=== PATIENT | female | born 1935 | race Caucasian/White ===

== ENCOUNTER 2017-10-23 14:27 | Inpatient (IN) ==
--- NOTE | 2017-10-23 16:23 | Emergency Department Note ---
Disposition Clinical Impression: Bladder prolapse, Uterine prolapse Sepsis Qualifiers: Sepsis type: sepsis due to unspecified organism Qualified Code(s): A41.9 - Sepsis, unspecified organism Urinary tract infection Qualifiers: Urinary tract infection type: site unspecified Hematuria presence: without hematuria Qualified Code(s): N39.0 - Urinary tract infection, site not specified Disposition: Admitted As Inpatient Condition: Fair Time of Disposition: 19:33 General Adult HPI - General Chief complaint: ED Urogenital-Female Stated complaint: Prolasped Uterius Time Seen by Provider: 10/23/17 15:47 Source: patient Mode of arrival: ambulatory Limitations: no limitations Nursing Notes Reviewed: Yes Vital Signs Reviewed: Yes - History of Present Illness HPI Narrative: Patient is an 82-year-old female with no pertinent past medical history presenting 2 hours prior with complaint of a prolapsed uterus. Patient states that this is been going on for the past 3 years and has been gradually worsening over time and she is being evaluated today because of her daughter. According to the patient's daughter the patient has been having difficulty with sitting down with pain she discussed these findings with the patient patient admitted that she has had this prolapse has been going on aspirin gradually worsening to the point now where she has pain. She states that the prolapse is like the size of a fist. She states that she was seen at [place] urgent care and referred to come here for her uterine prolapse. States that the area has been odorous. Pain Scale: 5 - Related Data Home Medications Medication Instructions Recorded Confirmed Amlodipine Besylate 10 mg PO DAILY 10/23/17 10/23/17 Aspirin Enteric Coated [Aspirin EC] 81 mg PO DAILY 10/23/17 10/23/17 Calcium Carbonate/Vitamin D3 1 each PO BID 10/23/17 10/23/17 [Oyster Shell Calcium-Vit D Tab] Fluticasone/Salmeterol [Advair 1 each IH BID 10/23/17 10/23/17 250-50 Diskus] Meloxicam 15 mg PO DAILY 10/23/17 10/23/17 Omeprazole 20 mg PO DAILY 10/23/17 10/23/17 Sitagliptin Phos/Metformin HCl 1 each PO BID 10/23/17 10/23/17 [Janumet 50-1,000 mg Tablet] Valsartan [Diovan] 80 mg PO DAILY 10/23/17 10/23/17 hydroCHLOROthiazide 25 mg PO DAILY PRN 10/23/17 10/23/17 [Hydrochlorothiazide] Previous Rx's Medication Instructions Recorded Ciprofloxacin [Cipro] 500 mg PO BID #14 tablet 10/23/17 Allergies Allergy/AdvReac Type Severity Reaction Status Date / Time No Known Allergies Allergy Verified 10/23/17 13:08 All systems ED: reviewed and negative except as stated. Review of Systems: As Per HPI Constitutional: Denies: fever, chills Gastrointestinal: Denies: abdominal pain, nausea, vomiting Genitourinary: Reports: frequency, other (Bladder incontinence). Denies: hematuria Musculoskeletal: Denies: back pain, neck pain Integumentary: Denies: rash Past Medical History - Past Medical History Attestation: Yes The following information was validated with the patient. Medical history: Reports: non-contributory Surgical history: Reports: no surgical history Psychiatric history: Reports: no psych history - Social History Smoking Status: Never smoker Smokeless Tobacco Status: No Alcohol use: Reports: none Drug use: Reports: none Physical Exam CONSTITUTIONAL: Alert and oriented X3, well-nourished, well appearing, in no apparent distress HEAD: Normocephalic; atraumatic. EYES: PERRL, no scleral icterus. NOSE: The nose is normal in appearance without rhinorrhea RESP: Normal chest excursion with respiration; breath sounds clear and equal bilaterally; no wheezes, rhonchi, or rales CARD: Regular rhythm, without murmurs, rub or gallop ABD: Non-distended; non-tender, soft,without rigidity, rebound or guarding PELVIC: Patient's pelvic exam showed an exposed cervix on external exam possibly due to a prolapsed uterus. SKIN: Normal for age and race; warm and dry; no apparent lesions - General Limitations: no limitations General appearance: alert, in no apparent distress Course Course Narrative: Patient's pelvic revealed exposed cervix on the external vaginal exam. Plan is to do a CT of the pelvis with IV contrast to further evaluate the problem area. - Reevaluation(s) Reevaluation #1: Patient's lab work showed a leukocytosis of 16, a GFR of 44 with a normal creatinine, a urine with positive leukocyte esterase and blood due to these findings and the patient initially having tachycardia and considering the patient to be in urosepsis. Plan is to order cultures of both blood and urine. Also had a lactate. And we will start the patient on IV ceftriaxone for her urinary tract infection. Patient's CT scan did show hydroureteronephrosis bilaterally secondary to the patient's prolapsed bladder and uterus. With these findings and my plan is to admit the patient to hospital for further evaluation and workup of her findings. I discussed this with the patient and she agrees with the plan. Time: 19:32 Reevaluation #2: I discussed the patient's case with the urologist decontamination worker Dr. Oliver and he states that he agrees with the plan to admit the patient treated with IV antibiotics. He states that he will see the patient in the morning. He states he does not see a reason to transfer this patient at this time because this is not something that requires emergent treatment she may not be a candidate for surgery. He states that the important item now is to make sure that we treat the patient's infection and then we will develop a plan for the patient's tomorrow. I will discuss these findings with Dr. Terry and admit to the hospital. Time: 19:52 Vital Signs Temperature 97.9 F 10/23/17 14:30 Pulse Rate 104 10/23/17 14:30 Respiratory Rate 18 10/23/17 14:30 Blood Pressure 146/69 10/23/17 14:30 O2 Sat by Pulse Oximetry 96 10/23/17 14:30 Temperature 99.5 F 10/24/17 06:50 Pulse Rate 73 10/24/17 06:50 Respiratory Rate 18 10/24/17 06:50 Blood Pressure 95/60 10/24/17 06:50 O2 Sat by Pulse Oximetry 98 10/24/17 06:50 Oxygen Delivery Oxygen Delivery Room Air Medical Decision Making - Medical Records Medical records reviewed: Yes I reviewed the patient's medical records. - Lab Data Lab results reviewed: Yes I reviewed the patient's lab results. Result diagrams: 10/24/17 07:14 10/24/17 07:14 Lab Results 10/23/17 10/23/17 10/23/17 Range/Units 16:26 16:27 16:27 WBC 16.1 H (4.3-11.1) K/mcL RBC 4.17 (3.82-4.97) M/mcL Hgb 11.4 L (11.5-15.4) g/dL Hct 36.5 (35.3-44.9) % MCV 87.5 (83.0-100.0) fL MCH 27.3 L (28.0-33.3) pg MCHC 31.2 L (31.6-35.5) g/dL RDW 14.7 H (11.5-14.5) % Plt Count 265 (140-400) K/mcL MPV 10.3 (9.4-12.4) fL Immature Gran % 0.4 (0-4) % Seg Neutrophils % 49.3 % Lymphocytes % 38.6 % Monocytes % 8.5 % Eosinophils % 2.7 % Basophils % 0.5 % Neutrophils # 8.0 (1.6-8.9) K/mcL Lymphocytes # 6.2 H (0.6-4.6) K/mcL Monocytes # 1.4 H (0.0-1.3) K/mcL Eosinophils # 0.4 (0.0-0.6) K/mcL Basophils # 0.1 (0.0-0.2) K/mcL Sodium 139 (136-145) mEq/L Potassium 4.1 (3.5-5.1) mEq/L Chloride 106 (98-107) mEq/L Carbon Dioxide 26 (23-29) mEq/L BUN 25 H (8-23) mg/dL Creatinine 1.18 (0.60-1.20) mg/dL Est GFR ( Amer) 53 L (> 60) Est GFR (Non-Af Amer) 44 L (> 60) BUN/Creatinine Ratio 21 (6-26) Glucose 118 H (70-105) mg/dL POC Glucose (58-89) Calculated Osmolality 293 (280-300) Lactic Acid (0.5-2.2) mmol/L Calcium 9.3 (8.6-10.3) mg/dL Urine Color Yellow (Yellow) Urine Clarity Turbid A (Clear) Urine pH 6.5 (5.0-8.0) pH Units Ur Specific [place] 1.010 (1.010-1.025) Urine Protein >=300 H (Neg-Trace) mg/dL Urine Glucose (UA) Normal (Normal) mg/dL Urine Ketones Negative (Negative) mg/dL Urine Blood Large H (Negative) Urine Nitrite Negative (Negative) Urine Bilirubin Negative (Negative) Urine Urobilinogen Normal (Normal) mg/dL Ur Leukocyte Esterase Large H (Negative) Urine Microscopic RBC Present (0-3) per hpf Urine Microscopic WBC TNTC H (0-3) per hpf Ur Squamous Epith Cells Many H (None-Few) per lpf Urine Bacteria Many H (None-Few) per hpf Hyaline Casts None Seen (None-Few) per lpf Ur Culture Indicated? NO. (NO) 10/23/17 10/23/17 Range/Units 19:34 22:18 WBC (4.3-11.1) K/mcL RBC (3.82-4.97) M/mcL Hgb (11.5-15.4) g/dL Hct (35.3-44.9) % MCV (83.0-100.0) fL MCH (28.0-33.3) pg MCHC (31.6-35.5) g/dL RDW (11.5-14.5) % Plt Count (140-400) K/mcL MPV (9.4-12.4) fL Immature Gran % (0-4) % Seg Neutrophils % % Lymphocytes % % Monocytes % % Eosinophils % % Basophils % % Neutrophils # (1.6-8.9) K/mcL Lymphocytes # (0.6-4.6) K/mcL Monocytes # (0.0-1.3) K/mcL Eosinophils # (0.0-0.6) K/mcL Basophils # (0.0-0.2) K/mcL Sodium (136-145) mEq/L Potassium (3.5-5.1) mEq/L Chloride (98-107) mEq/L Carbon Dioxide (23-29) mEq/L BUN (8-23) mg/dL Creatinine (0.60-1.20) mg/dL Est GFR ( Amer) (> 60) Est GFR (Non-Af Amer) (> 60) BUN/Creatinine Ratio (6-26) Glucose (70-105) mg/dL POC Glucose 125 H (58-89) Calculated Osmolality (280-300) Lactic Acid 1.8 (0.5-2.2) mmol/L Calcium (8.6-10.3) mg/dL Urine Color (Yellow) Urine Clarity (Clear) Urine pH (5.0-8.0) pH Units Ur Specific [place] (1.010-1.025) Urine Protein (Neg-Trace) mg/dL Urine Glucose (UA) (Normal) mg/dL Urine Ketones (Negative) mg/dL Urine Blood (Negative) Urine Nitrite (Negative) Urine Bilirubin (Negative) Urine Urobilinogen (Normal) mg/dL Ur Leukocyte Esterase (Negative) Urine Microscopic RBC (0-3) per hpf Urine Microscopic WBC (0-3) per hpf Ur Squamous Epith Cells (None-Few) per lpf Urine Bacteria (None-Few) per hpf Hyaline Casts (None-Few) per lpf Ur Culture Indicated? (NO) - Radiology Data Radiology results reviewed: Yes I reviewed the patient's radiology results. Pelvis CT 10/23/17 16:17 IMPRESSION: 1. Evidence of uterine and bladder prolapse. 2. Moderate hydroureteronephrosis bilaterally, likely due to the prolapse. 3. Urinary bladder wall thickening and adjacent stranding, suspicious for cystitis. D/ 10/23/2017 19:05:35 Mo Andrade MD / juan pablo Interpreting Provider: Mo Andrade MD Attestation Statement - Attestation Attestation: I examined this patient and my medical decision-making was reviewed with the Resident Physician. I agree with the documented findings, disposition and treatment plan as described except to the extent set forth below. Patient presents to the ED with a chief complaint of a uterine prolapse. Patient has been having increasing prolapse and pain over 3 years. She went to urgent care today who sent her to the ED. On examination she has a parallax of her cervix through her vagina. Plan. Labs, UA, and CT scan.
[2017-10-23 16:34] LABS: Basophils # 0.1 K/mcL (0.0-0.2); Basophils % 0.5 %; Eosinophils # 0.4 K/mcL (0.0-0.6); Eosinophils % 2.7 %; Hematocrit 36.5 % (35.3-44.9); Hemoglobin 11.4 g/dL (11.5-15.4); Immature Granulocytes % 0.4 % (0-4); Lymphocytes # 6.2 K/mcL (0.6-4.6); Lymphocytes % 38.6 %; Mean Corpuscular HGB Conc 31.2 g/dL (31.6-35.5); Mean Corpuscular Hemoglobin 27.3 pg (28.0-33.3); Mean Corpuscular Volume 87.5 fL (83.0-100.0); Mean Platelet Volume 10.3 fL (9.4-12.4); Monocytes # 1.4 K/mcL (0.0-1.3); Monocytes % 8.5 %; Platelet Count 265 K/mcL (140-400); Red Blood Count 4.17 M/mcL (3.82-4.97); Red Cell Distribution Width 14.7 % (11.5-14.5); Segmented Neutrophils % 49.3 %
[2017-10-23 16:37] LABS: Bilirubin,Urine Negative (Negative); Blood,Urine Large (Negative); Clarity,Urine Turbid (Clear); Color,Urine Yellow (Yellow); Glucose,Urine (UA) Normal (Normal); Ketones,Urine Negative (Negative); Leukocyte Esterase,Urine Large (Negative); Nitrite,Urine Negative (Negative); PH,Urine 6.5 pH Units (5.0-8.0); Protein,Urine >=300 mg/dL (Neg-Trace); Urobilinogen,Urine Normal (Normal)
[2017-10-23 16:40] LABS: Bacteria,Urine Many per hpf (None-Few); Hyaline Casts,Urine None Seen per lpf (None-Few); Squamous Epithelial Cell,Urine Many per lpf (None-Few); WBC,Urine TNTC per hpf (0-3)
[2017-10-23 17:02] LABS: Calcium 9.3 mg/dL (8.6-10.3); Potassium 4.1 mEq/L (3.5-5.1)
[2017-10-23 17:03] LABS: RBC,Urine Present per hpf (0-3)
[2017-10-23] MEDS ORDERED: Ondansetron 4 MG/2 ML VIAL IVP ONE (17:32)
[2017-10-23] MEDS ORDERED: cefTRIAXone 1,000 MG in Water for inj. (sterile) 10 ML IVP ONE (19:22)
[2017-10-24] MEDS ORDERED: *HR* Morphine 2 MG/ML SYRINGE IVP PRN ×3 (03:37→15:32)
[2017-10-24] MEDS ORDERED: Acetaminophen 325 MG TABLET PO PRN (03:37)
[2017-10-24] MEDS ORDERED: Ondansetron 4 MG/2 ML VIAL IVP PRN (03:39)
[2017-10-24] MEDS ORDERED: *HR* OxyCODONE Immed Rel 5 MG TABLET PO PRN (03:39)
[2017-10-24] MEDS ORDERED: Naloxone 0.4 MG/ML INJ IVP PRN (03:39)
--- NOTE | 2017-10-24 03:43 | Internal Med History&Physical ---
Date of Encounter: 10/24/17 Time of Encounter: 03:41 Assessment and Plan (1) Sepsis Current visit: Yes Status: Acute Sepsis secondary to urinary tract infection with bilateral moderate hydronephrosis and cystitis caused by uterine and bladder prolapse Continue Rocephin, urine culture Urology was consulted by the ER. [facility] consult needs to be called in the morning IV fluids Blood cultures Omeprazole for GI prophylaxis and sequential compression devices for DVT prophylaxis. The patient will be admitted as inpatient, expected to stay more than 2 midnights. Full code. Time spent on this admission 40 minutes Qualifiers: Sepsis type: sepsis due to unspecified organism Qualified Code(s): A41.9 - Sepsis, unspecified organism (2) Urinary tract infection Current visit: Yes Status: Acute Qualifiers: Urinary tract infection type: site unspecified Hematuria presence: without hematuria Qualified Code(s): N39.0 - Urinary tract infection, site not specified (3) Bladder prolapse Current visit: Yes Status: Acute (4) Uterine prolapse Current visit: Yes Status: Acute (5) Diabetes Current visit: Yes Status: Acute Continue with insulin sliding scale Qualifiers: Diabetes mellitus type: type 2 Diabetes mellitus complication status: without complication Diabetes mellitus intermission coordinator insulin use: without intermission coordinator use Qualified Code(s): E11.9 - Type 2 diabetes mellitus without complications Internal Medicine - H&P: HPI Chief complaint: Bladder and uterine prolapse Admitted From: Emergency Dept History of present illness: Ms. Emmanuel is a 82 year old female with a past medical history of diabetes type 2 [id number], chronic incontinence, moderate diastolic dysfunction, went to an urgent care at [facility] as she complained of worsening prolapse of her bladder and uterus. The patient says that is been getting worse in the past 3 years. She was sent to the ER, her heart rate was 104 White blood cell count was 16.1 and glucose 118, urinalysis showed too numerous white blood cells count, many bacteria. CT scan shows a uterine and bladder prolapse with moderate bilateral hydroureteronephrosis and cystitis. Vision mentions that she has had some dysuria, urinary incontinence, a temperature of 99. Received Rocephin at the emergency room. No other complaints Past Med Surg Social Fam HX - Past Medical History Medical history: CHF (Diastolic dysfunction/moderate), diabetes (Not insulin- dependent), other (Hypertension, GERD, urinary incontinence, Escherichia coli UTI) Psychiatric history: no psych history - Past Surgical History Surgical History: no surgical history - Social History Smoking Status: Never smoker Smokeless Tobacco Status: No Alcohol use: none Drug use: none - Additional Family History Additional family history: Other with unknown cancer Internal Medicine - H&P: Meds Amlodipine Besylate 10 mg PO DAILY 10/23/17 [History] Aspirin Enteric Coated [Aspirin EC] 81 mg PO DAILY 10/23/17 [History] Calcium Carbonate/Vitamin D3 [Oyster Shell Calcium-Vit D Tab] 1 each PO BID 12/09 [History] Ciprofloxacin [Cipro] 500 mg PO BID #14 tablet 10/23/17 [Rx] Fluticasone/Salmeterol [Advair 250-50 Diskus] 1 each IH BID 10/23/17 [History] Meloxicam 15 mg PO DAILY 10/23/17 [History] Omeprazole 20 mg PO DAILY 10/23/17 [History] Sitagliptin Phos/Metformin HCl [Janumet 50-1,000 mg Tablet] 1 each PO BID [History] Valsartan [Diovan] 80 mg PO DAILY 10/23/17 [History] hydroCHLOROthiazide [Hydrochlorothiazide] 25 mg PO DAILY PRN 10/23/17 [History] 3 Allergy/AdvReac Type Severity Reaction Status Date / Time No Known Allergies Allergy Verified 10/23/17 13:08 All Systems PM: A 10-system review of systems was performed and is negative for pertinent findings except as documented above in the HPI. Review of systems: No surgical breath, chest pain. Other systems out of the 10 reviewed were negative - Constitutional Vitals: Temp Pulse Resp BP Pulse Ox 98.5 F 91 14 136/73 94 10/24/17 01:01 10/24/17 01:01 10/24/17 01:01 10/24/17 01:01 10/24/17 01:01 General appearance: Present: A&O X 3 - Head Head exam: Present: atraumatic, normocephalic - Eye Eye exam: Present: PERRL, conjuntiva pink, sclera anicteric Pupils: Present: PERRL - Neck Neck exam general surgery: Present: supple, trachea midline. Absent: lymphadenopathy - Respiratory Respiratory exam: Present: CTAB. Absent: accessory muscle use, rales, rhonchi, wheezes - Cardiovascular Cardiovascular exam: Present: RRR, +S1, +S2. Absent: diastolic murmur, gallop, rubs, systolic murmur - GI/Abdominal GI/Abdominal exam: Present: normal bowel sounds, soft, no peritoneal signs. Absent: distended, tenderness - Additional comments: Severe uterine and lateral prolapse, the patient mentioned that it bled slightly earlier today - Extremities Exam Extremities exam: Present: warm, radial pulses palpable and symmetrical. Absent : calf tenderness, cyanotic, pedal edema - Neurological Exam Neurological exam: Present: CN II-XII intact, oriented X3, no focal deficits. Absent: pronater drift, facial droop, speech deficit - Skin Skin exam: Present: dry, intact Internal Med - H&P Results - Labs CBC & Chem 7: 10/23/17 16:27 10/23/17 16:27
[2017-10-24] MEDS ORDERED: Dextrose Gel 15 GM/37.5 ML TUBE PO PRN ×2 (03:44)
[2017-10-24] MEDS ORDERED: *HR* Dextrose 50 % in Water (Syg) 50 ML SYRINGE IVP PRN (03:44)
[2017-10-24] MEDS ORDERED: D5% in Water 1,000 ML IVC PRN (03:44)
[2017-10-24] MEDS: 0.9 % Sodium Chloride 1,000 ML IVC SCH ×2 (05:07→19:00)
[2017-10-24 07:43] LABS: Hematocrit 30.7 % (35.3-44.9); Mean Corpuscular HGB Conc 31.9 g/dL (31.6-35.5); Mean Corpuscular Hemoglobin 27.7 pg (28.0-33.3); Mean Corpuscular Volume 86.7 fL (83.0-100.0); Mean Platelet Volume 11.3 fL (9.4-12.4); Platelet Count 192 K/mcL (140-400); Red Blood Count 3.54 M/mcL (3.82-4.97); Red Cell Distribution Width 14.9 % (11.5-14.5)
[2017-10-24 07:52] LABS: Hemoglobin 9.8 g/dL (11.5-15.4)
[2017-10-24 08:05] LABS: BUN/Creatinine Ratio 21 (6-26); Blood Urea Nitrogen 22 mg/dL (8-23); Calcium 8.7 mg/dL (8.6-10.3); Carbon Dioxide 24 mEq/L (23-29); Chloride 108 mEq/L (98-107); Glucose 158 mg/dL (70-105); Osmolality,Calculated 293 (280-300); Sodium 138 mEq/L (136-145); eGFR For African Americans > 60 (> 60); eGFR For Non-African Americans 50 (> 60)
[2017-10-24] MEDS: Insulin LISPRO 300 UNITS/3 ML VIAL SQ SCH ×4 (08:54→21:59)
[2017-10-24] MEDS ORDERED: Valsartan 80 MG TABLET PO SCH (09:00)
[2017-10-24] MEDS: Aspirin Enteric Coated 81 MG Tablet PO SCH (09:58)
[2017-10-24] MEDS: amLODIPine 5 MG TABLET PO SCH (09:58)
[2017-10-24] MEDS: cefTRIAXone 1,000 MG in Water for inj. (sterile) 20 ML 10 ML IVPB SCH (09:58)
--- NOTE | 2017-10-24 10:45 | Urology - Consult Note ---
Date of Encounter: 10/24/17 Time of Encounter: 10:43 - Assessment and Plan (1) Hydronephrosis Current Visit: Yes Status: Acute Assessment and plan: Likely secondary to significant bladder prolapse. Hopefully will improve with pessary placement Qualifiers: Hydronephrosis type: unspecified Qualified Code(s): N13.30 - Unspecified hydronephrosis (2) Bladder prolapse Current Visit: Yes Status: Acute (3) Complete uterine prolapse Current Visit: No Status: Acute Assessment and plan: I was able to reduce the patient's complete prolapse without difficulty. I then proceeded to place a #6 cube pessary into the patient's vagina. Initial placement with standing resulted in spontaneous extrusion of the device. I had the patient sit back down and was able to replace the device which seemed to stay in place. If it falls out later today will keep out. Patient will need outpatient follow-up with me or my partner depending on whether the pessary stays in place. We will continue to follow closely. Urology CN:HPI Consult date: 10/24/17 Reason for consult Urology: Other (Bladder and uterine prolapse) Requesting physician: Enzo Shearer History of present illness: Sanjuana is an 82-year-old female who presented to the emergency Department yesterday secondary to vaginal discomfort secondary to prolapsed uterus and bladder. Patient states that she has been doing with this for some time but it became worse. She has never seen a physician for this problem before. No trouble voiding at this time. Urinalysis was consistent with possible urinary tract infection. She also did have mild to moderate bilateral hydronephrosis consistent with ureteral obstruction from cystocele. Past Med Surg Social Fam HX - Past Medical History Medical history: non-contributory Psychiatric history: no psych history - Past Surgical History Surgical History: no surgical history - Social History Smoking Status: Never smoker Smokeless Tobacco Status: No Alcohol use: none Drug use: none Medications and Allergies Amlodipine Besylate 10 mg PO DAILY 10/23/17 [History] Aspirin Enteric Coated [Aspirin EC] 81 mg PO DAILY 10/23/17 [History] Calcium Carbonate/Vitamin D3 [Oyster Shell Calcium-Vit D Tab] 1 each PO BID 12/09 [History] Ciprofloxacin [Cipro] 500 mg PO BID #14 tablet 10/23/17 [Rx] Fluticasone/Salmeterol [Advair 250-50 Diskus] 1 each IH BID 10/23/17 [History] Meloxicam 15 mg PO DAILY 10/23/17 [History] Omeprazole 20 mg PO DAILY 10/23/17 [History] Sitagliptin Phos/Metformin HCl [Janumet 50-1,000 mg Tablet] 1 each PO BID [History] Valsartan [Diovan] 80 mg PO DAILY 10/23/17 [History] hydroCHLOROthiazide [Hydrochlorothiazide] 25 mg PO DAILY PRN 10/23/17 [History] 3 Allergy/AdvReac Type Severity Reaction Status Date / Time No Known Allergies Allergy Verified 10/23/17 13:08 Review of Systems - Constitutional no chills - EENT Nose, mouth and throat: no dizziness - Cardiovascular no chest pain - Respiratory no cough - Gastrointestinal no abdominal pain - Genitourinary Genitourinary: as per HPI - Musculoskeletal no back pain - Integumentary no erythema - Neurological no confusion - Psychiatric no anxiety - Hematologic/Lymphatic no easy bleeding Exam Initial Vital Signs Temp Pulse Resp BP Pulse Ox 97.9 F 104 18 146/69 96 10/23/17 14:30 10/23/17 14:30 10/23/17 14:30 10/23/17 14:30 10/23/17 14:30 - General physical appearance Present: well developed - Eyes Present: PERRL - ENT Present: normal nares - Neck Present: no masses - Respiratory Present: normal respiratory effort - Cardiovascular Cardiovascular exam IM: RRR - Abdomen Abdomen: Present: soft - Genitourinary Present: other (Complete prolapse of cervix and uterus with some bladder as well easily reducible) - Integumentary Present: no rash - Neurologic Present: normal coordination - Musculoskeletal Present: normal gait Urology Results - Labs 10/24/17 07:14 10/24/17 07:14 Abnormal lab results WBC 13.4 K/mcL (4.3-11.1) H 10/24/17 07:14 RBC 3.54 M/mcL (3.82-4.97) L 10/24/17 07:14 Hgb 9.8 g/dL (11.5-15.4) L D 10/24/17 07:14 Hct 30.7 % (35.3-44.9) L 10/24/17 07:14 MCH 27.7 pg (28.0-33.3) L 10/24/17 07:14 RDW 14.9 % (11.5-14.5) H 10/24/17 07:14 Lymphocytes # 6.2 K/mcL (0.6-4.6) H 10/23/17 16:27 Monocytes # 1.4 K/mcL (0.0-1.3) H 10/23/17 16:27 Chloride 108 mEq/L (98-107) H 10/24/17 07:14 Est GFR (Non-Af Amer) 50 (> 60) L 10/24/17 07:14 Glucose 158 mg/dL (70-105) H 10/24/17 07:14 POC Glucose 141 (58-89) H 10/24/17 07:53 Urine Clarity Turbid (Clear) A 10/23/17 16:26 Urine Protein >=300 mg/dL (Neg-Trace) H 10/23/17 16:26 Urine Blood Large (Negative) H 10/23/17 16:26 Ur Leukocyte Esterase Large (Negative) H 10/23/17 16:26 Urine Microscopic WBC TNTC per hpf (0-3) H 10/23/17 16:26 Ur Squamous Epith Cells Many per lpf (None-Few) H 10/23/17 16:26 Urine Bacteria Many per hpf (None-Few) H 10/23/17 16:26 Diabetes panel 10/24/17 Range/Units 07:14 Sodium 138 (136-145) mEq/L Potassium 4.0 (3.5-5.1) mEq/L Chloride 108 H (98-107) mEq/L Carbon Dioxide 24 (23-29) mEq/L BUN 22 (8-23) mg/dL Creatinine 1.05 (0.60-1.20) mg/dL Glucose 158 H (70-105) mg/dL Calcium 8.7 (8.6-10.3) mg/dL Calcium panel 10/24/17 Range/Units 07:14 Calcium 8.7 (8.6-10.3) mg/dL Pituitary panel 10/24/17 Range/Units 07:14 Sodium 138 (136-145) mEq/L Potassium 4.0 (3.5-5.1) mEq/L Chloride 108 H (98-107) mEq/L Carbon Dioxide 24 (23-29) mEq/L BUN 22 (8-23) mg/dL Creatinine 1.05 (0.60-1.20) mg/dL Glucose 158 H (70-105) mg/dL Calcium 8.7 (8.6-10.3) mg/dL Adrenal panel 10/24/17 Range/Units 07:14 Sodium 138 (136-145) mEq/L Potassium 4.0 (3.5-5.1) mEq/L Chloride 108 H (98-107) mEq/L Carbon Dioxide 24 (23-29) mEq/L BUN 22 (8-23) mg/dL Creatinine 1.05 (0.60-1.20) mg/dL Glucose 158 H (70-105) mg/dL Calcium 8.7 (8.6-10.3) mg/dL All other labs normal. - Imaging CT scan - abdomen: image reviewed CT scan - pelvis: image reviewed Consult Discharge Plan - Plan Referrals: Izabel Sauceda MD [Primary Care Provider] -
--- NOTE | 2017-10-24 11:23 | OB/GYN Consult Note ---
Date of Encounter: 10/24/17 Time of Encounter: 11:30 Assessment and Plan (1) Uterine prolapse Current Visit: Yes Status: Acute On physical exam urerus was no longer prolapsed as pessary has already been placed per urology. Patient should f/u either with urology or BOX BLANK MACHINE OPERATOR HELPER in 3-4 days after discharge for pessary f/u. (2) Urinary tract infection Current Visit: Yes Status: Acute management per primary team Qualifiers: Urinary tract infection type: site unspecified Hematuria presence: without hematuria Qualified Code(s): N39.0 - Urinary tract infection, site not specified (3) Sepsis Current Visit: Yes Status: Acute continue antibiotics and fluids per primary team Qualifiers: Sepsis type: sepsis due to unspecified organism Qualified Code(s): A41.9 - Sepsis, unspecified organism (4) Diabetes Current Visit: Yes Status: Acute management per primary team Qualifiers: Diabetes mellitus type: type 2 Diabetes mellitus complication status: without complication Diabetes mellitus intermediate manager insulin use: without intermediate manager use Qualified Code(s): E11.9 - Type 2 diabetes mellitus without complications History of Present Illness Consult date: 10/24/17 Requesting physician: Enzo Shearer Reason for consult: other (uterine prolapse) Chief complaint: uterine prolapse History of present illness: Patient is a 82 y/o female who presented to the ED complaining of worsening uterine prolapse and increase odor. Patient was found to have urosepsis and was started on ceftriaxone. Patient states that her prolapse has been present for about 3 years and has been worsening over the last couple weeks. Patient is currently doing well with minimal pain in her RLQ and suprapubic areas. Patient states that she came is because she was having pain with sitting. Denies fevers , chills, n/v, bleeding, or other complaints. She does have diabetes and osteoporosis but reports she is otherwise healthy. Past Med Surg Social Fam HX - Past Medical History Medical history: diabetes, other (chronic occassional incontinence ) Psychiatric history: no psych history - Past Surgical History Surgical History: no surgical history - Social History Smoking Status: Never smoker Smokeless Tobacco Status: No Alcohol use: none Drug use: none Medications and Allergies Amlodipine Besylate 10 mg PO DAILY 10/23/17 [History] Aspirin Enteric Coated [Aspirin EC] 81 mg PO DAILY 10/23/17 [History] Calcium Carbonate/Vitamin D3 [Oyster Shell Calcium-Vit D Tab] 1 each PO BID 12/09 [History] Ciprofloxacin [Cipro] 500 mg PO BID #14 tablet 10/23/17 [Rx] Fluticasone/Salmeterol [Advair 250-50 Diskus] 1 each IH BID 10/23/17 [History] Meloxicam 15 mg PO DAILY 10/23/17 [History] Omeprazole 20 mg PO DAILY 10/23/17 [History] Sitagliptin Phos/Metformin HCl [Janumet 50-1,000 mg Tablet] 1 each PO BID [History] Valsartan [Diovan] 80 mg PO DAILY 10/23/17 [History] hydroCHLOROthiazide [Hydrochlorothiazide] 25 mg PO DAILY PRN 10/23/17 [History] 3 Allergy/AdvReac Type Severity Reaction Status Date / Time No Known Allergies Allergy Verified 10/23/17 13:08 Review of Systems Constitutional: as per HPI Exam - Vital Signs Vital signs: Initial Vital Signs Temp Pulse Resp BP Pulse Ox 97.9 F 104 18 146/69 96 10/23/17 14:30 10/23/17 14:30 10/23/17 14:30 10/23/17 14:30 10/23/17 14:30 - Constitutional Constitutional: well developed, well nourished, no acute distress - HEENT HEENT: Normocephaly, Mucus Membranes Moist - Neck Neck exam: full ROM - Lungs Respiratory exam: CTAB - Cardiovascular Cardiovascular exam: RRR - Abdomen Abdomen detail: left lower quadrant: tenderness (medial to ASIS, mild suprapubic tenderness ) - Vagina Vagina: Present: normal moisture (no prolapse noted at this time as pessary has been placed. No bleeding are discharge noted) - Comments Comments: vaginal exam showed no pessery protruding out, no uterine prolapse currently present LE: tender + 2 pitting edema Results Result Diagrams: 10/24/17 07:14 10/24/17 07:14 Abnormal lab results WBC 13.4 K/mcL (4.3-11.1) H 10/24/17 07:14 RBC 3.54 M/mcL (3.82-4.97) L 10/24/17 07:14 Hgb 9.8 g/dL (11.5-15.4) L D 10/24/17 07:14 Hct 30.7 % (35.3-44.9) L 10/24/17 07:14 MCH 27.7 pg (28.0-33.3) L 10/24/17 07:14 RDW 14.9 % (11.5-14.5) H 10/24/17 07:14 Lymphocytes # 6.2 K/mcL (0.6-4.6) H 10/23/17 16:27 Monocytes # 1.4 K/mcL (0.0-1.3) H 10/23/17 16:27 Chloride 108 mEq/L (98-107) H 10/24/17 07:14 Est GFR (Non-Af Amer) 50 (> 60) L 10/24/17 07:14 Glucose 158 mg/dL (70-105) H 10/24/17 07:14 POC Glucose 141 (58-89) H 10/24/17 07:53 Urine Clarity Turbid (Clear) A 10/23/17 16:26 Urine Protein >=300 mg/dL (Neg-Trace) H 10/23/17 16:26 Urine Blood Large (Negative) H 10/23/17 16:26 Ur Leukocyte Esterase Large (Negative) H 10/23/17 16:26 Urine Microscopic WBC TNTC per hpf (0-3) H 10/23/17 16:26 Ur Squamous Epith Cells Many per lpf (None-Few) H 10/23/17 16:26 Urine Bacteria Many per hpf (None-Few) H 10/23/17 16:26 All other labs normal. Consult Discharge Plan - Plan Referrals: Izabel Sauceda MD [Primary Care Provider] -
[2017-10-24] MEDS ORDERED: Ipratropium/Albuterol Neb 3 ML IH PRN (15:31)
[2017-10-24] MEDS: *HR* OxyCODONE Immed Rel 5 MG TABLET PO PRN (17:06)
--- NOTE | 2017-10-24 19:25 | Event Note ---
Date of Encounter: 10/24/17 Time of Encounter: 09:34 Patient seen and examined this AM. She is complaining of difficulty voiding. Has bladder and uterine prolapse sequentially causing hydronephrosis and uti leading to sepsis. Currently on Rocephin. Physical exam: VS: BP 95-132/60-75, HR within normal limits, no fever Gen: NAD CVS: RRR Lungs: CTAB Abd; NT/ND 1 ) Sepsis 2 ) UTI 3 ) uterine and bladder prolapse Continue rocephin Urology and FOREST ECONOMICS PROFESSOR consulted, recommendations appreciated.
[2017-10-25 05:58] LABS: Basophils # 0.1 K/mcL (0.0-0.2); Basophils % 0.8 %; Eosinophils # 0.5 K/mcL (0.0-0.6); Eosinophils % 5.4 %; Hematocrit 29.3 % (35.3-44.9); Hemoglobin 9.2 g/dL (11.5-15.4); Immature Granulocytes % 0.2 % (0-4); Lymphocytes # 3.3 K/mcL (0.6-4.6); Lymphocytes % 38.4 %; Mean Corpuscular HGB Conc 31.4 g/dL (31.6-35.5); Mean Corpuscular Hemoglobin 27.5 pg (28.0-33.3); Mean Corpuscular Volume 87.5 fL (83.0-100.0); Mean Platelet Volume 10.9 fL (9.4-12.4); Monocytes # 0.9 K/mcL (0.0-1.3); Neutrophils # 3.9 K/mcL (1.6-8.9); Platelet Count 160 K/mcL (140-400); Red Blood Count 3.35 M/mcL (3.82-4.97); Red Cell Distribution Width 15.1 % (11.5-14.5); Segmented Neutrophils % 45.2 %
[2017-10-25 06:31] LABS: BUN/Creatinine Ratio 21 (6-26); Blood Urea Nitrogen 21 mg/dL (8-23); Calcium 8.3 mg/dL (8.6-10.3); Carbon Dioxide 24 mEq/L (23-29); Chloride 114 mEq/L (98-107); Glucose 130 mg/dL (70-105); Osmolality,Calculated 299 (280-300); Potassium 4.5 mEq/L (3.5-5.1); Sodium 142 mEq/L (136-145); eGFR For African Americans > 60 (> 60); eGFR For Non-African Americans 54 (> 60)
[2017-10-25] MEDS: Aspirin Enteric Coated 81 MG Tablet PO SCH (08:05)
[2017-10-25] MEDS: cefTRIAXone 1,000 MG in Water for inj. (sterile) 20 ML 10 ML IVPB SCH (08:05)
[2017-10-25] MEDS: amLODIPine 5 MG TABLET PO SCH (08:05)
[2017-10-25] MEDS: 0.9 % Sodium Chloride 1,000 ML IVC SCH (08:13)
[2017-10-25] MEDS ORDERED: *HR* Morphine 2 MG/ML SYRINGE IVP PRN (08:16)
[2017-10-25] MEDS: Insulin LISPRO 300 UNITS/3 ML VIAL SQ SCH ×4 (08:45→21:47)
[2017-10-25] MEDS ORDERED: Valsartan 80 MG TABLET PO SCH (09:00)
--- NOTE | 2017-10-25 09:47 | Urology Progress Note ---
Date of Encounter: 10/25/17 Time of Encounter: 09:46 - Assessment and Plan (1) Hydronephrosis Current Visit: Yes Status: Acute Assessment and plan: will obtain renal us after f/u Qualifiers: Hydronephrosis type: unspecified Qualified Code(s): N13.30 - Unspecified hydronephrosis (2) Bladder prolapse Current Visit: Yes Status: Acute (3) Complete uterine prolapse Current Visit: No Status: Acute Assessment and plan: keep pessary. f/u 11/09/17 at 9 am in [place] . patient will also need to f/u with account relationship manager Progress Note Narrative: Patient seen. pessary still in place. feels better. no pain. voiding well. Objective Initial Vital Signs Temp Pulse Resp BP Pulse Ox 97.9 F 104 18 146/69 96 10/23/17 14:30 10/23/17 14:30 10/23/17 14:30 10/23/17 14:30 10/23/17 14:30 - General physical appearance Present: well developed - Abdomen Present: soft, non tender. Absent: masses - Labs 10/25/17 05:36 10/25/17 05:36 Diabetes panel 10/25/17 Range/Units 05:36 Sodium 142 (136-145) mEq/L Potassium 4.5 (3.5-5.1) mEq/L Chloride 114 H (98-107) mEq/L Carbon Dioxide 24 (23-29) mEq/L BUN 21 (8-23) mg/dL Creatinine 0.99 (0.60-1.20) mg/dL Glucose 130 H (70-105) mg/dL Calcium 8.3 L (8.6-10.3) mg/dL Calcium panel 10/25/17 Range/Units 05:36 Calcium 8.3 L (8.6-10.3) mg/dL Pituitary panel 10/25/17 Range/Units 05:36 Sodium 142 (136-145) mEq/L Potassium 4.5 (3.5-5.1) mEq/L Chloride 114 H (98-107) mEq/L Carbon Dioxide 24 (23-29) mEq/L BUN 21 (8-23) mg/dL Creatinine 0.99 (0.60-1.20) mg/dL Glucose 130 H (70-105) mg/dL Calcium 8.3 L (8.6-10.3) mg/dL Adrenal panel 10/25/17 Range/Units 05:36 Sodium 142 (136-145) mEq/L Potassium 4.5 (3.5-5.1) mEq/L Chloride 114 H (98-107) mEq/L Carbon Dioxide 24 (23-29) mEq/L BUN 21 (8-23) mg/dL Creatinine 0.99 (0.60-1.20) mg/dL Glucose 130 H (70-105) mg/dL Calcium 8.3 L (8.6-10.3) mg/dL Consult Discharge Plan - Plan Referrals: Izabel Sauceda MD [Primary Care Provider] -
--- NOTE | 2017-10-25 18:32 | Internal Med Progress Note ---
Date of Encounter: 10/25/17 Time of Encounter: 18:30 - Assessment and plan (1) Sepsis Current Visit: Yes Status: Acute Assessment and plan: Resulting from complicated UTI. Patient does not appear septic any longer. Urine culture growing GNR. She is responding to cephalosporins, If she remains well, should be okay to discharge tomorrow with Keflex. Qualifiers: Sepsis type: sepsis due to unspecified organism Qualified Code(s): A41.9 - Sepsis, unspecified organism (2) Urinary tract infection Current Visit: Yes Status: Acute Qualifiers: Urinary tract infection type: site unspecified Hematuria presence: without hematuria Qualified Code(s): N39.0 - Urinary tract infection, site not specified (3) Complete uterine prolapse Current Visit: No Status: Acute (4) Bladder prolapse Current Visit: Yes Status: Acute (5) Diabetes Current Visit: Yes Status: Acute Qualifiers: Diabetes mellitus type: type 2 Diabetes mellitus complication status: without complication Diabetes mellitus assisted insulin use: without assisted use Qualified Code(s): E11.9 - Type 2 diabetes mellitus without complications (6) Hydronephrosis Current Visit: Yes Status: Acute Qualifiers: Hydronephrosis type: unspecified Qualified Code(s): N13.30 - Unspecified hydronephrosis - Subjective Interval history: No complaints. Feels significantly better after pessary was placed yesterday - Constitutional Vitals: Temp Pulse Resp BP Pulse Ox 97.9 F 74 16 155/75 95 10/25/17 15:27 10/25/17 15:27 10/25/17 15:27 10/25/17 15:27 10/25/17 15:27 General appearance: Present: A&O X 3 - Head Head exam: Present: atraumatic, normocephalic - Eye Eye exam: Present: PERRL, conjuntiva pink, sclera anicteric Pupils: Present: PERRL - Neck Neck exam general surgery: Present: supple, trachea midline. Absent: lymphadenopathy - Respiratory Respiratory exam: Present: CTAB. Absent: accessory muscle use, rales, rhonchi, wheezes - Cardiovascular Cardiovascular exam: Present: RRR, +S1, +S2. Absent: diastolic murmur, gallop, rubs, systolic murmur - GI/Abdominal GI/Abdominal exam: Present: normal bowel sounds, soft, no peritoneal signs. Absent: distended, tenderness - Extremities Exam Extremities exam: Present: warm, radial pulses palpable and symmetrical. Absent : calf tenderness, cyanotic, pedal edema - Neurological Exam Neurological exam: Present: CN II-XII intact, oriented X3, no focal deficits. Absent: pronater drift, facial droop, speech deficit - Skin Skin exam: Present: dry, intact Internal Medicine: Result - Labs CBC & Chem 7: 10/25/17 05:36 10/25/17 05:36 Labs: Short CBC 10/25/17 Range/Units 05:36 WBC 8.7 (4.3-11.1) K/mcL Hgb 9.2 L (11.5-15.4) g/dL Hct 29.3 L (35.3-44.9) % Plt Count 160 (140-400) K/mcL Neutrophils # 3.9 (1.6-8.9) K/mcL BMP 10/25/17 05:36 Sodium 142 Potassium 4.5 Chloride 114 H Carbon Dioxide 24 BUN 21 Creatinine 0.99 Glucose 130 H Calcium 8.3 L Consult Discharge Plan - Plan Referrals: Rene Mccurdy MD [Partnered Physician] - 11/09/17 9:00 am ()
[2017-10-25] MEDS: *HR* OxyCODONE Immed Rel 5 MG TABLET PO PRN (23:38)
[2017-10-26] MEDS ORDERED: *HR* OxyCODONE/APAP 5/325 TABLET PO ONE (01:07)
[2017-10-26] MEDS: *HR* OxyCODONE Immed Rel 5 MG TABLET PO PRN (05:26)
[2017-10-26 06:48] LABS: Basophils # 0.1 K/mcL (0.0-0.2); Basophils % 0.6 %; Eosinophils # 0.6 K/mcL (0.0-0.6); Eosinophils % 6.8 %; Hematocrit 30.7 % (35.3-44.9); Hemoglobin 9.9 g/dL (11.5-15.4); Immature Granulocytes % 0.2 % (0-4); Lymphocytes # 4.2 K/mcL (0.6-4.6); Lymphocytes % 44.1 %; Mean Corpuscular HGB Conc 32.2 g/dL (31.6-35.5); Mean Corpuscular Hemoglobin 27.8 pg (28.0-33.3); Mean Corpuscular Volume 86.2 fL (83.0-100.0); Mean Platelet Volume 11.8 fL (9.4-12.4); Monocytes # 0.9 K/mcL (0.0-1.3); Monocytes % 9.3 %; Neutrophils # 3.7 K/mcL (1.6-8.9); Platelet Count 175 K/mcL (140-400); Red Blood Count 3.56 M/mcL (3.82-4.97); Red Cell Distribution Width 14.7 % (11.5-14.5)
[2017-10-26 07:08] LABS: BUN/Creatinine Ratio 26 (6-26); Blood Urea Nitrogen 22 mg/dL (8-23); Calcium 8.7 mg/dL (8.6-10.3); Carbon Dioxide 24 mEq/L (23-29); Chloride 110 mEq/L (98-107); Glucose 117 mg/dL (70-105); Osmolality,Calculated 294 (280-300); Potassium 4.4 mEq/L (3.5-5.1); Sodium 140 mEq/L (136-145); eGFR For African Americans > 60 (> 60); eGFR For Non-African Americans > 60 (> 60)
[2017-10-26] MEDS: Insulin LISPRO 300 UNITS/3 ML VIAL SQ SCH ×2 (09:13→12:10)
[2017-10-26] MEDS: amLODIPine 5 MG TABLET PO SCH (09:20)
[2017-10-26] MEDS: Aspirin Enteric Coated 81 MG Tablet PO SCH (09:20)
[2017-10-26] MEDS: cefTRIAXone 1,000 MG in Water for inj. (sterile) 20 ML 10 ML IVPB SCH (09:21)
--- NOTE | 2017-10-26 10:39 | Discharge Summary ---
Date of Encounter: 10/26/17 Time of Encounter: 10:36 - Discharge Diagnosis (1) Sepsis Priority: Primary Status: Resolved Qualifiers: Sepsis type: sepsis due to unspecified organism Qualified Code(s): A41.9 - Sepsis, unspecified organism (2) Urinary tract infection Priority: Secondary Status: Acute Qualifiers: Urinary tract infection type: site unspecified Hematuria presence: without hematuria Qualified Code(s): N39.0 - Urinary tract infection, site not specified (3) Complete uterine prolapse Priority: Secondary Status: Acute (4) Bladder prolapse Priority: Secondary Status: Acute (5) Diabetes Priority: Secondary Status: Acute Qualifiers: Diabetes mellitus type: type 2 Diabetes mellitus complication status: without complication Diabetes mellitus assistant terminal manager insulin use: without care home use Qualified Code(s): E11.9 - Type 2 diabetes mellitus without complications (6) Hydronephrosis Priority: Secondary Status: Acute Qualifiers: Hydronephrosis type: unspecified Qualified Code(s): N13.30 - Unspecified hydronephrosis - Discharge Medications Prescriptions: Cephalexin [Keflex] 500 mg PO TID #21 capsule Home Medications: Amlodipine Besylate 10 mg PO DAILY 10/23/17 [History] Aspirin Enteric Coated [Aspirin EC] 81 mg PO DAILY 10/23/17 [History] Calcium Carbonate/Vitamin D3 [Oyster Shell Calcium-Vit D Tab] 1 each PO BID 12/09 [History] Fluticasone/Salmeterol [Advair 250-50 Diskus] 1 each IH BID 10/23/17 [History] Omeprazole 20 mg PO DAILY 10/23/17 [History] Sitagliptin Phos/Metformin HCl [Janumet 50-1,000 mg Tablet] 1 each PO BID [History] Valsartan [Diovan] 80 mg PO DAILY 10/23/17 [History] hydroCHLOROthiazide [Hydrochlorothiazide] 25 mg PO DAILY PRN 10/23/17 [History] Cephalexin [Keflex] 500 mg PO TID #21 capsule 10/26/17 [Rx] Allergies/Adverse Reactions: 3 Allergy/AdvReac Type Severity Reaction Status Date / Time No Known Allergies Allergy Verified 10/23/17 13:08 Date of admission: 10/24/17 03:36 Primary care physician: Izabel Sauceda Consults: 10/24/17 03:37 Consult to WELDING PROCESS SPECIALIST [CONS] Routine Consulting Provider: CARRIER ASSOCIATE Danielle Reason for Consult: uterine prolapse Call Completed: No Discharging clinician: Kasia Schroeder - Patient Status Disposition: Home, Self-Care Condition: Fair Functional capacity at discharge: independent ambulation Overall status at discharge: patient is progressing back to baseline - Discharge Instructions Follow Up With: Rene Mccurdy MD [Partnered Physician] - 11/09/17 9:00 am () - Diet and Activity Activity: increase activity as tolerated Diet: advance to your usual diet Hospital course: Ms. Emmanuel is a 82 year old female with a past medical history of diabetes type 2 [id number], chronic incontinence, moderate diastolic dysfunction, went to an urgent care at [facility] as she complained of worsening prolapse of her bladder and uterus. The patient says that is been getting worse in the past 3 years. She was sent to the ER, her heart rate was 104 White blood cell count was 16.1 and glucose 118, urinalysis showed too numerous white blood cells count, many bacteria. CT scan shows a uterine and bladder prolapse with moderate bilateral hydroureteronephrosis and cystitis. Vision mentions that she has had some dysuria, urinary incontinence, a temperature of 99. Received Rocephin at the emergency room, admitted and was continued on Rocephin. Her sepsis resolved, no longer tachycardic, leukocytosis resolved. Urology and Gynocology were consulted. A pessary was placed and she was in stable condition. Her pessary did come out on two occasions which caused distress. It was reinserted and her pain resolved. Likely the pessary will come out again , Gynecology was able to make same day appointment with patient to allow for potentially better fitting pessary. She was discharged home in stable condition. - Time Spent with Patient Total time spent providing and/or coordinating discharge services: - Constitutional Vitals: Temp Pulse Resp BP Pulse Ox 98.1 F 61 16 160/81 95 10/26/17 08:46 10/26/17 08:46 10/26/17 08:46 10/26/17 08:46 10/26/17 08:46 General appearance: Present: A&O X 3 - Head Head exam: Present: atraumatic, normocephalic - Eye Eye exam: Present: PERRL, conjuntiva pink, sclera anicteric Pupils: Present: PERRL - Neck Neck exam general surgery: Present: supple, trachea midline. Absent: lymphadenopathy - Respiratory Respiratory exam: Present: CTAB. Absent: accessory muscle use, rales, rhonchi, wheezes - Cardiovascular Cardiovascular exam: Present: RRR, +S1, +S2. Absent: diastolic murmur, gallop, rubs, systolic murmur - GI/Abdominal GI/Abdominal exam: Present: normal bowel sounds, soft, no peritoneal signs. Absent: distended, tenderness - Additional comments: Complete prolapse noted on gross physical exam. - Extremities Exam Extremities exam: Present: warm, radial pulses palpable and symmetrical. Absent : calf tenderness, cyanotic, pedal edema - Neurological Exam Neurological exam: Present: CN II-XII intact, oriented X3, no focal deficits. Absent: pronater drift, facial droop, speech deficit - Skin Skin exam: Present: dry, intact
[2017-10-26 11:55] VITALS: BP 173/93
[2017-10-26] MEDS ORDERED: Ondansetron ODT 4 MG TAB.RAPDIS SL ONE (13:26)
== END 2017-10-26 14:23 | disposition home or self-care (01) | DRG 872 ==
LOC: EMEROO 14:27 → 3ANU 14:27
PROVIDERS: ADMIT Internal Medicine; ATTEND Student in an Organized Health Care Education/Training Program